=== PATIENT | female | born 1965 | race Caucasian/White ===

== ENCOUNTER 2022-12-31 00:30 | Emergency (ER) | payer OTHER ==
[2022-12-31] MEDS ORDERED: Ketorolac 30 MG/ML SDV IM ONE (01:04)
[2022-12-31] MEDS ORDERED: Take Home: Acetaminophen/HYDROcodone 325-5 MG, 5 Tab Pack PO ONE (01:05)
== END 2022-12-31 01:30 | disposition home or self-care (01) ==
LOC: LL.ED 00:30
DX: S29.011A Strain of muscle and tendon of front wall of thorax, initial encounter (principal); V49.40XA Driver injured in collision with unspecified motor vehicles in traffic accident, initial encounter
CPT/HCPCS: 71100-LT; 96372; 99283; A9270-GY; J1885